=== PATIENT | female | born 1965 | race Caucasian/White ===

== ENCOUNTER 2017-06-29 16:25 | Emergency (ER) | payer MEDICAID, OTHER ==
[~2017-06-29 16:25] MED LIST: Z.0.NO CURRENT MEDS
[2017-06-29 16:49] VITALS: BP_SYST 122; BP_SYST 133; BP_DIAS 62; BP_DIAS 67; TEMP 99.2; TEMP 99.8; O2SAT 99
--- NOTE | 2017-06-29 17:14 | PD ---
HPI Chief Complaint: Cold / Flu Symptoms Time Seen by Provider: 17:02 Travel History International Travel<30 days: No Contact w/Intl Traveler<30days: No Traveled to known affect area: No History of Present Illness HPI 51-year-old female presents to the emergency department for evaluation of flulike symptoms that started this morning. Patient came via EMS with her 2 children who are sick with similar symptoms for the past 2 days. Patient reports body aches, cough, congestion that started this morning. Patient denies any vomiting or diarrhea. She has not had any known fevers. She reports no chronic medical problems and takes no prescribed medications. No exacerbating or alleviating factors. She has not taken anything for her symptoms. Mild to moderate severity. PFSH Past Medical History Medical History: Denies Significant Hx Immunizations Current: Yes ?: Not Past Surgical History Genitourinary Surgery: Yes (KIDNEY REMOVED) Social History Alcohol Use: No Tobacco Use: No Substance Use: No Allergies-Medications (Allergen,Severity, Reaction): Coded Allergies: No Known Allergies (Verified Adverse Reaction, Unknown, 06/29/17) Reported Meds & Prescriptions Reported Meds & Active Scripts Active No Active Prescriptions or Reported Medications Review of Systems Except as stated in HPI: all other systems reviewed are Neg Physical Exam Narrative GENERAL: Well-nourished, well-developed female patient, afebrile. SKIN: Focused skin assessment warm/dry. HEAD: Normocephalic. Atraumatic. EYES: No scleral icterus. No injection or drainage. NECK: Supple, trachea midline. No JVD or lymphadenopathy. CARDIOVASCULAR: Regular rate and rhythm without murmurs, gallops, or rubs. RESPIRATORY: Breath sounds equal bilaterally. No accessory muscle use. Lungs sounds are clear to auscultation. GASTROINTESTINAL: Abdomen soft, non-tender, nondistended. MUSCULOSKELETAL: No cyanosis, or edema. BACK: Nontender without obvious deformity. No CVA tenderness. Data Data Last Documented VS Vital Signs Date Time Temp Pulse Resp B/P (MAP) Pulse Ox O2 Delivery O2 Flow Rate FiO2 06/29/17 16:49 99.2 107 20 133/67 (89) 99 Orders Orders Influenzae A/B Antigen (06/29/17 16:55) Ibuprofen (Motrin) (06/29/17 17:15) [facility] Medical Decision Making Medical Screen Exam Complete: Yes Emergency Medical Condition: Yes Medical Record Reviewed: Yes Differential Diagnosis URI versus influenza versus viral syndrome Narrative Course 51-year-old female presents to the emergency department for evaluation of bodyaches and cough that started this morning. She appears well on exam. Influenza swab is ordered and pending. Patient is given ibuprofen 600 mg by mouth. Influenza is negative. However, one of her children, doesn't positive for influenza B with similar symptoms. Due to this, I do suspect this is a false negative and patient will be treated with Tamiflu. She will also be given a prescription for benzonatate capsules for cough. She is instructed take Tylenol , Motrin, rest, drink plenty of fluids. She verbalizes agreement. The patient was discharged in stable condition with instructions, including return instructions and follow up instructions. Diagnosis Primary Impression: Viral syndrome Referrals: Primary Care Physician call for appointment Patient Instructions: General Instructions, Viral Syndrome (ED) Departure Forms: Tests/Procedures, Work Release Enter return to work date: Jul 02, 2017 Additional Instructions: Take Tamiflu as instructed. Take benzonatate capsules as instructed as needed for cough. Rest. Drink plenty of fluids. [id number] Tylenol every 4 hours as needed, [id number] Motrin every 6-8 hours as needed. Follow-up with your primary care physician. Return to the emergency department for any acute worsening of symptoms. Med/Other Pt SpecificInfo: Prescription(s) given Scripts Benzonatate (Benzonatate) 200 Mg Cap 200 MG PO TID Y for COUGH, #21 CAP 0 Refills Prov: Nora Escobar 06/29/17 Oseltamivir (Tamiflu) 75 Mg Cap 75 MG PO BID for Mgmt Viral Infection for 5 Days, #10 CAP 0 Refills Prov: Nora Escobar 06/29/17 Disposition: 01 DISCHARGE HOME Condition: Stable Nora Escobar Jun 29, 2017 17:14
[2017-06-29] MEDS ORDERED: IBUPROFEN 600 MG TAB PO ONE (17:15)
[2017-06-29] MEDS ORDERED: BENZ1CAP51 PO (18:39)
[2017-06-29] MEDS ORDERED: OSEL75 PO (18:39)
== END 2017-06-29 18:47 | disposition home or self-care (01) ==
LOC: NEPA 16:25
DX: B34.9 Viral infection, unspecified (principal)
CPT/HCPCS: 87804; 99283